=== PATIENT | male | born 1980 | race African-American/Black ===

== ENCOUNTER 2025-03-27 07:16 | Emergency (ER) | payer MEDICAID ==
[~2025-03-27] VITALS: Ht 175.3 cm; Wt 65.7 kg
[2025-03-27 07:27] VITALS: O2SAT 100
[2025-03-27] MEDS: FLUORESCEIN SODIUM 1MG/STRIP LEFTEYE ONE (09:29)
[2025-03-27] MEDS: TETRACAINE 0.5% OPHTH DROPS 4ML LEFTEYE ONE (09:29)
[2025-03-27] MEDS ORDERED: TOBR5DRO47 LEFTEYE (10:02)
[2025-03-27 11:20] VITALS: BP 102/66; PULSE 65; RESP 16; TEMP 36.7; O2SAT 100
[2025-03-27] MEDS: TOBRAMYCIN/DEXAMETH 0.1/0.3% OPHTH SUSP 2.5ML LEFTEYE SCH (11:20)
== END 2025-03-27 11:22 | disposition home or self-care (01) ==
LOC: ER 07:16
DX: S00.212A Abrasion of left eyelid and periocular area, initial encounter (principal); X58.XXXA Exposure to other specified factors, initial encounter; Y93.89 Activity, other specified; Y92.89 Other specified places as the place of occurrence of the external cause; Y99.8 Other external cause status
CPT/HCPCS: 99283

== ENCOUNTER 2025-04-04 11:57 | Emergency (ER) | payer MEDICAID ==
[~2025-04-04] VITALS: Ht 180.3 cm; Wt 65.0 kg
[~2025-04-04 11:57] MED LIST: TOBR5DRO47 LEFTEYE
[2025-04-04 12:02] VITALS: TEMP 36.6; O2SAT 99
[2025-04-04] MEDS: TETRACAINE 0.5% OPHTH DROPS 4ML BOTHEYE ONE (18:00)
[2025-04-04] MEDS: FLUORESCEIN SODIUM 1MG/STRIP LEFTEYE ONE (18:00)
[2025-04-04 20:53] VITALS: BP 118/66; PULSE 63; RESP 13; O2SAT 100
== END 2025-04-04 21:02 | disposition home or self-care (01) ==
LOC: ER 11:57
DX: H43.392 Other vitreous opacities, left eye (principal); H54.7 Unspecified visual loss
CPT/HCPCS: 99284